=== PATIENT | male | born 1975 | race Caucasian/White ===

== ENCOUNTER 2017-02-15 16:29 | Observation (INO) | payer OTHER ==
[~2017-02-15] VITALS: Ht 175.3 cm; Wt 82.8 kg
[2017-02-15] MEDS ORDERED: CARV12.52 PO (17:06)
[2017-02-15] MEDS ORDERED: METF500T4 PO (17:06)
[2017-02-15] MEDS ORDERED: GABA600T2 PO (17:06)
[2017-02-15] MEDS ORDERED: FURO20TA3 PO (17:06)
[2017-02-15] MEDS ORDERED: WARF5TAB7 PO (17:06)
[2017-02-15] MEDS ORDERED: ATOR80TA75 PO (17:06)
[2017-02-15] MEDS ORDERED: DIGO125T PO (17:06)
[2017-02-15] MEDS ORDERED: AMOX1TAB64 PO (17:06)
[2017-02-15] MEDS ORDERED: LISI2.5T PO (17:06)
[2017-02-15] MEDS ORDERED: SPIR25TA3 PO (17:06)
[2017-02-15] MEDS ORDERED: MORPHINE SULFATE 4 MG/ML, 1ML ONE (17:27)
[2017-02-15] MEDS ORDERED: NITROGLYCERIN OINT 2%, 1GM TP ONE ×2 (17:27→17:30)
[2017-02-15] MEDS ORDERED: ASPIRIN 81 MG TABLET CHEW ONE (17:27)
[2017-02-15] MEDS ORDERED: ONDANSETRON 2MG/ML, 2ML ONE (17:27)
[2017-02-15] MEDS ORDERED: ASPIRIN 81 MG TABLET CHEW PO ONE (17:30)
[2017-02-15] MEDS ORDERED: ONDANSETRON 2MG/ML, 2ML IVPush ONE (17:30)
[2017-02-15] MEDS ORDERED: MORPHINE SULFATE 4 MG/ML, 1ML IVPush PRN (17:30)
[2017-02-15 17:54] LABS: BLOOD UREA NITROGEN 26 mg/dL (7-18)
[2017-02-15 18:06] LABS: IS PT STATUS REG ER OR PRE ER? YES
[2017-02-15 20:26] VITALS: BP 98/67
[2017-02-15] MEDS ORDERED: ONDANSETRON ODT 4 MG PO PRN (20:30)
[2017-02-15] MEDS ORDERED: BISACODYL 10 MG SUPP PR PRN (20:30)
[2017-02-15] MEDS ORDERED: LABETALOL 5MG/ML, 20ML IVPush PRN (20:30)
[2017-02-15] MEDS ORDERED: POLYETHYLENE GLYCOL 17 GM PACKET PO PRN (20:30)
[2017-02-15] MEDS ORDERED: DOCUSATE 100 MG CAPSULE PO PRN (20:30)
[2017-02-15] MEDS ORDERED: ACETAMINOPHEN 325 MG TABLET PO PRN (20:30)
[2017-02-15] MEDS ORDERED: TRAZODONE 50MG TABLET PO PRN (20:30)
[2017-02-15] MEDS ORDERED: NICOTINE 14MG/24 HR PATCH.TD24 TD SCH (20:30)
[2017-02-15] MEDS ORDERED: ATORVASTATIN 80 MG TABLET PO SCH (21:00)
[2017-02-15] MEDS: INSULIN REGULAR 100 UNITS/ML, 3ML VIAL SQ-INSULIN SCH (21:00)
[2017-02-15 21:44] VITALS: BP 113/74
[2017-02-15] MEDS: AMOXICILLIN/CLAV 875-125MG TABLET PO SCH (22:10)
[2017-02-15] MEDS: CARVEDILOL 12.5 MG TABLET PO SCH (22:10)
[2017-02-15] MEDS: GABAPENTIN 400 MG CAPSULE PO SCH (22:11)
[2017-02-15 23:39] LABS: IS PT STATUS REG ER OR PRE ER? NO
[2017-02-16 02:00] VITALS: BP 117/76
[2017-02-16 06:25] LABS: ASPARTATE AMINO TRANSFERASE 117 U/L (15-37); BLOOD UREA NITROGEN 25 mg/dL (7-18)
[2017-02-16 06:26] LABS: IS PT STATUS REG ER OR PRE ER? NO
[2017-02-16] MEDS: INSULIN REGULAR 100 UNITS/ML, 3ML VIAL SQ-INSULIN SCH ×2 (07:00→11:30)
[2017-02-16 07:19] VITALS: BP 113/76
[2017-02-16] MEDS ORDERED: DIGOXIN 0.125 MG TABLET PO SCH (09:00)
[2017-02-16] MEDS ORDERED: THIAMINE 100MG TABLET PO SCH (09:00)
[2017-02-16] MEDS ORDERED: SPIRONOLACTONE 25 MG TABLET PO SCH (09:00)
[2017-02-16] MEDS ORDERED: LISINOPRIL 5 MG TABLET PO SCH (09:00)
[2017-02-16] MEDS ORDERED: FOLIC ACID 1 MG TABLET PO SCH (09:00)
[2017-02-16] MEDS ORDERED: FUROSEMIDE 40 MG TABLET PO SCH (09:00)
[2017-02-16] MEDS: AMOXICILLIN/CLAV 875-125MG TABLET PO SCH (09:43)
[2017-02-16] MEDS: CARVEDILOL 12.5 MG TABLET PO SCH (09:43)
[2017-02-16] MEDS: GABAPENTIN 400 MG CAPSULE PO SCH (09:44)
[2017-02-16] MEDS ORDERED: METF500T4 PO (13:29)
[2017-02-16 13:43] VITALS: BP 113/77
[2017-02-16] MEDS ORDERED: WARFARIN 5 MG TABLET PO-COUM SCH (18:00)
== END 2017-02-16 15:22 | disposition home or self-care (01) ==
LOC: ED 16:41 → EDIP 18:49 → INTOOBSV 18:49 → 5SO 20:04
PROVIDERS: ADMIT Internal Medicine; ATTEND Family Medicine
DX: R07.89 Other chest pain (principal); C64.9 Malignant neoplasm of unspecified kidney, except renal pelvis; E87.1 Hypo-osmolality and hyponatremia; I25.2 Old myocardial infarction; I11.0 Hypertensive heart disease with heart failure; I50.22 Chronic systolic (congestive) heart failure; E11.9 Type 2 diabetes mellitus without complications; E78.5 Hyperlipidemia, unspecified; F17.210 Nicotine dependence, cigarettes, uncomplicated; I25.10 Atherosclerotic heart disease of native coronary artery without angina pectoris; J44.9 Chronic obstructive pulmonary disease, unspecified; J45.909 Unspecified asthma, uncomplicated; R09.02 Hypoxemia; Z66 Do not resuscitate; Z79.01 Long term (current) use of anticoagulants; Z82.49 Family history of ischemic heart disease and other diseases of the circulatory system; Z91.041 Radiographic dye allergy status; Z95.5 Presence of coronary angioplasty implant and graft
CPT/HCPCS: 36415; 71010; 80048; 80053; 82040; 82962; 83036; 83735; 83880; 84439; 84443; 84484; 85025; 85610; 93005; 96374; 96375; 99285; G0378; J2405

== ENCOUNTER 2017-08-23 11:34 | Inpatient (IN) | payer OTHER ==
[~2017-08-23] VITALS: Ht 175.3 cm; Wt 80.9 kg
[~2017-08-23 11:34] MED LIST: AMOX1TAB64 PO; ATOR-2 PO; CARV12.52 PO; DIGO125T PO; FURO20TA3 PO; GABA600T2 PO; LISI2.5T PO; METF500T4 PO; OMEP-110 PO; SERT25TA PO; SPIR25TA3 PO; WARF5TAB7 PO
[2017-08-23] MEDS ORDERED: SODIUM CHLORIDE 0.9% 1,000 ML IV ONE (11:57)
[2017-08-23] MEDS ORDERED: ATOR40TA78 PO (11:59)
[2017-08-23] MEDS ORDERED: FLUT1AER INH (11:59)
[2017-08-23] MEDS ORDERED: ONDANSETRON 2MG/ML, 2ML IVPush ONE ×2 (12:00→12:30)
[2017-08-23] MEDS ORDERED: MORPHINE SULFATE 4 MG/ML, 1ML IVPush PRN (12:00)
[2017-08-23] MEDS ORDERED: SODIUM CHLORIDE FLUSH 10ML SYR IVF ONE ×2 (12:00→12:30)
[2017-08-23 12:14] LABS: HEMATOCRIT 48.8 % (39.2-51.8); HEMOGLOBIN 16.7 g/dL (13.7-18.0); WHITE BLOOD COUNT 6.6 x10^3/uL (3.4-10)
[2017-08-23] MEDS ORDERED: morphine SULFATE 10 MG/ML, 1ML ONE (12:21)
[2017-08-23] MEDS ORDERED: ONDANSETRON 2MG/ML, 2ML ONE (12:22)
[2017-08-23 12:27] LABS: BLOOD UREA NITROGEN 7 mg/dL (7-18)
[2017-08-23] MEDS ORDERED: HYDROmorphone 1 MG/ML, 1ML IVPush PRN (12:30)
[2017-08-23] MEDS ORDERED: CLINDAMYCIN PMX 900MG/50ML 50 ML IVPB ONE (12:30)
[2017-08-23] MEDS ORDERED: LIDOCAINE 2%, 20ML SQ ONE (12:30)
[2017-08-23] MEDS ORDERED: SODIUM CHLORIDE 0.9% 1,000ML IVBOLUS ONE (12:30)
[2017-08-23 12:34] LABS: ASPARTATE AMINO TRANSFERASE 19 U/L (15-37)
[2017-08-23 12:38] LABS: IS PT STATUS REG ER OR PRE ER? YES
[2017-08-23] MEDS ORDERED: ENALAPRILAT 1.25 MG/ML, 2ML IVPush PRN (14:30)
[2017-08-23] MEDS ORDERED: NITROGLYCERIN 0.4 MG BOTTLE (25 TABS) SL PRN (14:30)
[2017-08-23] MEDS ORDERED: SODIUM PHOSPHATE 10 MMOL in SODIUM CHLORIDE 0.9% 500 ML IV ONE (14:30)
[2017-08-23] MEDS ORDERED: DOCUSATE 100 MG CAPSULE PO PRN (14:30)
[2017-08-23] MEDS ORDERED: LABETALOL 5MG/ML, 20ML IVPush PRN (14:30)
[2017-08-23] MEDS ORDERED: ACETAMINOPHEN 325 MG TABLET PO PRN (14:30)
[2017-08-23] MEDS ORDERED: POLYETHYLENE GLYCOL 17 GM PACKET PO PRN (14:30)
[2017-08-23] MEDS ORDERED: ONDANSETRON 2MG/ML, 2ML IVPush PRN (14:30)
[2017-08-23] MEDS ORDERED: BISACODYL 10 MG SUPP PR PRN (14:30)
[2017-08-23] MEDS: morphine SULFATE 10 MG/ML, 1ML IVPush PRN ×2 (14:58→20:55)
[2017-08-23 15:45] VITALS: BP 149/92
[2017-08-23] MEDS: HYDROcodone/APAP 5/325 TABLET PO PRN (16:23)
[2017-08-23] MEDS: GABAPENTIN 300 MG CAPSULE PO SCH ×2 (16:23→20:55)
[2017-08-23] MEDS: DIGOXIN MC SCH (16:30)
[2017-08-23 18:33] LABS: IS PT STATUS REG ER OR PRE ER? NO
[2017-08-23 19:33] LABS: DAU SCREEN DISCLAIMER
[2017-08-23 19:42] LABS: PATH.CAST-FLAG NOT PRESENT; SPERM-FLAG NOT PRESENT; SRC-FLAG NOT PRESENT; XTAL-FLAG NOT PRESENT; YLC-FLAG NOT PRESENT
[2017-08-23 20:34] VITALS: BP 122/79
[2017-08-23] MEDS: CARVEDILOL 12.5 MG TABLET PO SCH (20:55)
[2017-08-23] MEDS ORDERED: DIGOXIN 0.125 MG TABLET PO SCH (21:00)
[2017-08-23] MEDS ORDERED: ATORVASTATIN 40 MG TABLET PO SCH (21:00)
[2017-08-24] MEDS: HYDROcodone/APAP 5/325 TABLET PO PRN ×4 (00:13→15:12)
[2017-08-24] MEDS: DIGOXIN MC SCH ×2 (00:30→08:30)
[2017-08-24 00:37] LABS: IS PT STATUS REG ER OR PRE ER? NO
[2017-08-24] MEDS: morphine SULFATE 10 MG/ML, 1ML IVPush PRN (02:19)
[2017-08-24 03:21] VITALS: BP 129/72
[2017-08-24 05:07] LABS: HEMATOCRIT 43.1 % (39.2-51.8); HEMOGLOBIN 14.5 g/dL (13.7-18.0); WHITE BLOOD COUNT 7.6 x10^3/uL (3.4-10)
[2017-08-24 05:16] LABS: ASPARTATE AMINO TRANSFERASE 16 U/L (15-37); BLOOD UREA NITROGEN 12 mg/dL (7-18)
[2017-08-24 07:24] VITALS: BP 155/75
[2017-08-24] MEDS ORDERED: OMEPRAZOLE 20 MG CAPSULE.DR PO SCH (07:30)
[2017-08-24] MEDS ORDERED: FLUTICASONE/VILANTEROL 100-25MCG/INH INH SCH (09:00)
[2017-08-24] MEDS ORDERED: SPIRONOLACTONE 25 MG TABLET PO SCH (09:00)
[2017-08-24] MEDS ORDERED: SERTRALINE 50MG TABLET PO SCH (09:00)
[2017-08-24] MEDS ORDERED: FUROSEMIDE 40 MG TABLET PO SCH (09:00)
[2017-08-24] MEDS ORDERED: DIGOXIN 0.125 MG TABLET PO SCH (09:00)
[2017-08-24] MEDS ORDERED: LISINOPRIL 5 MG TABLET PO SCH (09:00)
[2017-08-24] MEDS: CARVEDILOL 12.5 MG TABLET PO SCH (10:23)
[2017-08-24] MEDS: GABAPENTIN 300 MG CAPSULE PO SCH (10:24)
[2017-08-24 13:04] VITALS: BP 135/78
[2017-08-24] MEDS ORDERED: ALBUTEROL SULFATE 2.5 MG/3 ML NPPB PRN (15:30)
== END 2017-08-24 17:26 | DRG 313 ==
LOC: ED 13:00 → EDIP 13:33 → 5SO 15:23
PROVIDERS: ADMIT Family Medicine; ATTEND Family Medicine
DX: R07.89 Other chest pain (principal); I25.10 Atherosclerotic heart disease of native coronary artery without angina pectoris; I42.9 Cardiomyopathy, unspecified; E83.39 Other disorders of phosphorus metabolism; I11.0 Hypertensive heart disease with heart failure; I50.42 Chronic combined systolic (congestive) and diastolic (congestive) heart failure; E11.9 Type 2 diabetes mellitus without complications; E78.5 Hyperlipidemia, unspecified; N50.819 Testicular pain, unspecified; J44.9 Chronic obstructive pulmonary disease, unspecified; Z79.01 Long term (current) use of anticoagulants; Z80.9 Family history of malignant neoplasm, unspecified; I25.2 Old myocardial infarction; Z85.528 Personal history of other malignant neoplasm of kidney; Z91.19 Patient's noncompliance with other medical treatment and regimen; Z95.5 Presence of coronary angioplasty implant and graft; Z79.899 Other long term (current) drug therapy
CPT/HCPCS: 36415; 71010; 76870; 80053; 80307; 81001; 83735; 83880; 84100; 84484; 85025; 85610; 93005; 94640; 96361; 96374; 96375; J2405; J7613; G0479; J2270; J7030; J7040